=== PATIENT | female | born 1975 | race American Indian/Alaskan Native ===

== ENCOUNTER 2017-07-30 12:22 | Emergency (ER) | payer OTHER ==
[2017-07-30 13:09] VITALS: BP 125/70
== END 2017-07-30 15:10 | disposition left against medical advice (07) ==
LOC: ED 12:22
DX: M25.472 Effusion, left ankle (principal); R42 Dizziness and giddiness; F17.200 Nicotine dependence, unspecified, uncomplicated; Z53.21 Procedure and treatment not carried out due to patient leaving prior to being seen by health care provider
CPT/HCPCS: 82962

== ENCOUNTER 2018-08-31 12:47 | Emergency (ER) | payer OTHER ==
[2018-08-31 12:57] VITALS: BP 130/73
--- NOTE | 2018-08-31 13:31 | Emergency Department Report ---
ED Recheck HPI - General Chief Complaint: Recheck/Abnormal Lab/Rx Stated Complaint: OUT MEDS/ANKLE SWELLEN Time Seen by Provider: 08/31/18 13:26 Source: patient Mode of arrival: Ambulatory Limitations: No Limitations - History of Present Illness Initial Comments: Pt is a 43 yo female who presents to the ED with c/o needing a medication refill. pt denies any symptoms at all. she has pill bottles with prescriptions for metformin 500 mg BID, simvastatin 20 mg, and lisinopril 5 mg. pt states she has not taken her medications in 1 month. she does not report any CP, abd, N/V/D, urinary sx, SOB, dizziness, or any other sx. - Related Data Previous Rx's Medication Instructions Recorded Last Taken Type Lisinopril [Zestril TAB] 5 mg PO QDAY #21 tablet 08/31/18 Unknown Rx Simvastatin 20 mg PO DAILY #21 tablet 08/31/18 Unknown Rx metFORMIN [Glucophage] 500 mg PO BID #42 tablet 08/31/18 Unknown Rx Allergies Allergy/AdvReac Type Severity Reaction Status Date / Time No Known Allergies Allergy Unverified 07/30/17 13:04 ED Review of Systems ROS: Stated complaint: OUT MEDS/ANKLE SWELLEN Other details as noted in HPI Comment: All other systems reviewed and negative ED Past Medical Hx - Past Medical History Previous Medical History?: Yes Hx Hypertension: Yes Hx Diabetes: Yes Additional medical history: high cholesterol - Surgical History Past Surgical History?: No - Social History Smoking Status: Unknown if ever smoked Substance Use Type: None - Medications Home Medications: Home Medications Medication Instructions Recorded Confirmed Last Taken Type Lisinopril [Zestril TAB] 5 mg PO QDAY #21 tablet 08/31/18 Unknown Rx Simvastatin 20 mg PO DAILY #21 tablet 08/31/18 Unknown Rx metFORMIN [Glucophage] 500 mg PO BID #42 tablet 08/31/18 Unknown Rx ED Physical Exam - General Limitations: No Limitations General appearance: alert, in no apparent distress - Head Head exam: Present: atraumatic, normocephalic - Eye Eye exam: Present: normal appearance, PERRL - ENT ENT exam: Present: mucous membranes moist - Respiratory Respiratory exam: Present: normal lung sounds bilaterally. Absent: respiratory distress, wheezes, rales, rhonchi, stridor, accessory muscle use, decreased breath sounds, prolonged expiratory - Cardiovascular Cardiovascular Exam: Present: regular rate, normal rhythm, normal heart sounds. Absent: systolic murmur, diastolic murmur, rubs, gallop - Neurological Exam Neurological exam: Present: alert, oriented X3 - Psychiatric Psychiatric exam: Present: normal affect, normal mood - Skin Skin exam: Present: warm, dry, intact ED Course Vital Signs 08/31/18 12:56 Temperature 98.3 F Pulse Rate 92 H Respiratory 18 Rate Blood Pressure 130/73 O2 Sat by Pulse 100 Oximetry ED Recheck MDM - Medical Decision Making Pt is a 43 yo female who presents to the ED with c/o needing a medication refill. pt denies any symptoms at all. she has pill bottles with prescriptions for metformin 500 mg BID, simvastatin 20 mg, and lisinopril 5 mg. pt states she has not taken her medications in 1 month. she does not report any CP, abd, N/V/D, urinary sx, SOB, dizziness, or any other sx. VSS. pt given a refill of three weeks worth of her medications. advised to please take medication as prescribed. please keep a blood pressure log. please follow up with a primary care doctor in the next 2-3 days. given list of several clinics and resources in the surrounding area. discussed with pt in detail that future refills will need to be through a primary care doctor. return to the emergency room for any new or worsening symptoms. Critical care attestation.: If time is entered above; I have spent that time in minutes in the direct care of this critically ill patient, excluding procedure time. ED Disposition Clinical Impression: Medication refill Disposition: [id number] TO HOME OR SELFCARE Is pt being admited?: No Does the pt Need Aspirin: No Condition: Stable Additional Instructions: please take medication as prescribed. please keep a blood pressure log. please follow up with a primary care doctor in the next 2-3 days. given list of several clinics. future refills will need to be through a primary care doctor. return to the emergency room for any new or worsening symptoms. Prescriptions: metFORMIN [Glucophage] 500 mg PO BID #42 tablet Simvastatin 20 mg PO DAILY #21 tablet Lisinopril [Zestril TAB] 5 mg PO QDAY #21 tablet Referrals: [facility] [Outside] - 2-3 Days [facility] [Provider Group] - 2-3 Days [facility] [Outside] - 2-3 Days Time of Disposition: 13:31 Print Language: VATICAN CITIZEN
== END 2018-08-31 13:30 | disposition home or self-care (01) ==
LOC: ED 12:47
DX: I10 Essential (primary) hypertension (principal); E11.9 Type 2 diabetes mellitus without complications; E78.00 Pure hypercholesterolemia, unspecified; Z76.0 Encounter for issue of repeat prescription
CPT/HCPCS: 99282

== ENCOUNTER 2019-01-26 16:04 | Emergency (ER) | payer OTHER ==
[2019-01-26 17:11] VITALS: BP 127/66
--- NOTE | 2019-01-26 17:20 | Emergency Department Report ---
Chief Complaint: Medical Clearance Stated Complaint: REFILL ON DIABETIC MEDS Time Seen by Provider: 01/26/19 17:21 - HPI History of Present Illness: 43 y o female with a PMH of Diabetes, HTN and High Cholesterol presents wanting a refill on her medication stating she has been out of them for a couple of weeks, She states she is unable to follow up with her pcp yet She denies f/c/n/v/d/ [place]/blurry vision - ROS Review of Systems: As noted in HPI - Exam Vital Signs: Vital Signs 01/26/19 17:06 Temperature 98.8 F Pulse Rate 97 H Respiratory 20 Rate Blood Pressure 127/66 O2 Sat by Pulse 98 Oximetry Physical Exam: GEN: AAo x 3, no acute distress MSE screening note: Focused history and physical exam performed. Due to findings the following was ordered: ED Disposition for MSE Clinical Impression: Diabetes Disposition: Z- MED SCREENING EXAM-LEFT Is pt being admited?: No Does the pt Need Aspirin: No Condition: Stable Instructions: Diabetes Mellitus Type 2 in Adults (ED) Additional Instructions: follow up with pcp, take medication as presecribed Prescriptions: metFORMIN [Glucophage] 500 mg PO BID #60 tablet Simvastatin 20 mg PO DAILY #30 tablet Lisinopril [Zestril TAB] 5 mg PO QDAY #30 tablet Referrals: [facility] [Outside] - 3-5 Days [facility] [place] [Outside] - 3-5 Days Forms: Work/School Release Form(ED) Time of Disposition: :19
== END 2019-01-26 17:41 | disposition left against medical advice (07) ==
LOC: ED 16:04
DX: E11.9 Type 2 diabetes mellitus without complications (principal); Z76.0 Encounter for issue of repeat prescription
CPT/HCPCS: 99281

== ENCOUNTER 2019-11-08 23:27 | Emergency (ER) | payer OTHER ==
[2019-11-09 00:15] VITALS: BP 119/65
--- NOTE | 2019-11-09 04:36 | Emergency Department Report ---
HPI - General Chief Complaint: Recheck/Abnormal Lab/Rx Time Seen by Provider: 11/09/19 04:30 - HPI HPI: 44-year-old female presents to the emergency department with a complaint of a burning sensation to the left eye, eye redness, and some crusting and discharge since waking up yesterday morning. She says that she washed her eye out with some water and the symptoms have improved somewhat but have not yet resolved. She denies any fever, vision change, eye pain. She has a history of diabetes, hypertension and hyperlipidemia. ED Past Medical Hx - Past Medical History Hx Hypertension: Yes Hx Diabetes: Yes Additional medical history: high cholesterol - Social History Smoking Status: Never Smoker Substance Use Type: None - Medications Home Medications: Home Medications Medication Instructions Recorded Confirmed Last Taken Type Simvastatin 20 mg PO DAILY #30 tablet 01/26/19 Unknown Rx lisinopriL [Zestril TAB] 5 mg PO QDAY #30 tablet 01/26/19 Unknown Rx metFORMIN [Glucophage] 500 mg PO BID #60 tablet 01/26/19 Unknown Rx Tobramycin/Dexameth 0.3-0.1% 1 drops OS Q6H #1 bottle 11/09/19 Unknown Rx [Tobradex] ED Review of Systems ROS: Stated complaint: POSS PINK EYE Other details as noted in HPI Constitutional: denies: chills, fever Eyes: eye discharge, other (burning sensation) ENT: denies: ear pain, throat pain Respiratory: denies: cough, shortness of breath Neurological: denies: headache, weakness Physical Exam - Physical Exam Vital Signs: Vital Signs 11/09/19 00:14 Temperature 98.6 F Pulse Rate 93 H Respiratory 18 Rate Blood Pressure 119/65 O2 Sat by Pulse 100 Oximetry Physical Exam: GENERAL: The patient is well-developed well-nourished. HENT: Normocephalic. Atraumatic. Patient has moist mucous membranes. EYES: Extraocular motions are intact. Pupils equal reactive to light bilaterally. The left conjunctiva is diffusely injected. A small amount of discharge is seen to the medial canthus of the left eye. NECK: Supple. Trachea is midline. SKIN: Skin is warm and dry. NEURO: The patient is awake, alert, and oriented. The patient is cooperative. Normal speech. MUSCULOSKELETAL: There is no tenderness or deformity. ED Course Vital Signs 11/09/19 00:14 Temperature 98.6 F Pulse Rate 93 H Respiratory 18 Rate Blood Pressure 119/65 O2 Sat by Pulse 100 Oximetry ED Medical Decision Making - Medical Decision Making The patient appears to have conjunctivitis and will be placed antibiotic eyedrops. She has a burning sensation to the eye but no severe pain and no change in vision. Vital signs have been reassuring. She has been given outpatient referral for ophthalmology for both the conjunctivitis and for maintenance diabetic eye care. She will return to the ER with any worsening of her symptoms or with any acute distress. Critical Care Time: No Critical care attestation.: If time is entered above; I have spent that time in minutes in the direct care of this critically ill patient, excluding procedure time. ED Disposition Clinical Impression: Conjunctivitis Qualifiers: Conjunctivitis type: unspecified Laterality: left Qualified Code(s): H10.9 - Unspecified conjunctivitis Disposition: TO HOME OR SELFCARE Is pt being admited?: No Condition: Stable Instructions: Conjunctivitis (ED) Additional Instructions: Use the antibiotic eyedrops as prescribed. Follow-up with your primary care physician in the next few days. I have also given you a referral for a local transportation specialist, Dr. Paulino Winslow, to follow-up regarding your pinkeye and for diabetic eye care. Return to the emergency department immediately with any worsening of your symptoms or with any acute distress. Prescriptions: Tobramycin/Dexameth 0.3-0.1% [Tobradex] 1 drops OS Q6H #1 bottle Referrals: PAULINO WINSLOW MD [Staff Physician] - 2-3 Days [facility], [Primary Care Provider] - 2-3 Days Forms: Work/School Release Form(ED) Time of Disposition: 04:36
== END 2019-11-09 04:50 | disposition home or self-care (01) ==
LOC: ED 23:27
DX: H10.9 Unspecified conjunctivitis (principal); I10 Essential (primary) hypertension; E11.9 Type 2 diabetes mellitus without complications; E78.00 Pure hypercholesterolemia, unspecified; Z79.899 Other long term (current) drug therapy
CPT/HCPCS: 99281

== ENCOUNTER 2020-03-23 16:39 | Emergency (ER) | payer OTHER ==
[2020-03-23 16:51] VITALS: BP 116/66
--- NOTE | 2020-03-23 16:54 | Event Note ---
ED Screening Note Date of service: 03/23/20 Time: 16:53 ED Screening Note: This is a 44-year-old female with a history of diabetes on insulin and Metformin who presents the ED complaining of dizziness and weakness with vomiting and lower abdominal pain for the past week that is worsening. Patient states she has had a loss or lack of appetite in the past couple of days. Nontender abdomen. This initial assessment/diagnostic orders/clinical plan/treatment(s) is/are subject to change based on patients health status, clinical progression and re- assessment by fellow clinical providers in the ED. Further treatment and workup at subsequent clinical providers discretion. Patient/guardian urged not to elope from the ED as their condition may be serious if not clinically assessed and managed. Initial orders include: Labs, urine, To be further evaluated
[2020-03-23 17:29] LABS: Basophils % (Auto) 0.3 % (0.0-1.8); Eosinophils % (Auto) 0.6 % (0.0-4.3); Hematocrit 31.8 % (30.3-42.9); Hemoglobin 9.9 gm/dl (10.1-14.3); Lymphocytes # (Auto) 1.8 K/mm3 (1.2-5.4); Lymphocytes % (Auto) 39.6 % (13.4-35.0); Mean Corpuscular HGB Conc 31 % (30-34); Mean Corpuscular Volume 70 fl (79-97); Monocytes # (Auto) 0.4 K/mm3 (0.0-0.8); Platelet Count 284 K/mm3 (140-440); Red Blood Count 4.54 M/mm3 (3.65-5.03); Red Cell Distribution Width 20.1 % (13.2-15.2)
[2020-03-23 17:40] LABS: Alanine Aminotransferase 9 units/L (7-56); Blood Urea Nitrogen 6 mg/dL (7-17); Calcium 8.8 mg/dL (8.4-10.2); Hemolysis Index 16
[2020-03-23 17:42] LABS: BUN/Creatinine Ratio 10
[2020-03-23 17:50] LABS: HCG Qualitative,Urine Negative (Negative)
[2020-03-23 17:52] LABS: Bilirubin,Urine SM (Negative); Blood,Urine NEG (Negative); Color,Urine Amber (Yellow); Mucus,Urine 3+ /HPF
[2020-03-23 17:59] LABS: Protein,Urine >500 mg/dL (Negative)
[2020-03-23 18:05] LABS: Ictotest,Urine Negative (Negative)
[2020-03-23] MEDS ORDERED: SODIUM CHLORIDE 0.9% 1000 ML 1,000 ML IV ONE ×2 (21:08)
--- NOTE | 2020-03-23 22:32 | XRay Report ---
CHEST 1 VIEW 03/23/2020 9:05 PM INDICATION / CLINICAL INFORMATION: cough recent covid exposure. COMPARISON: None available. FINDINGS: SUPPORT DEVICES: None. HEART / MEDIASTINUM: No significant abnormality. LUNGS / PLEURA: No significant pulmonary or pleural abnormality. No pneumothorax. No confluent infilt rates or pleural effusions. ADDITIONAL FINDINGS: No significant additional findings. IMPRESSION: 1. No acute findings. Signer Name: Peter Boudreaux MD Signed: 03/23/2020 10:27 PM Workstation Name: [id number]
--- NOTE | 2020-03-23 22:48 | Emergency Department Report ---
ED General Adult HPI - General Chief complaint: Abdominal Pain Stated complaint: ABDOMINAL PAIN/DIZZINESS Time Seen by Provider: 03/23/20 20:59 Source: patient Mode of arrival: Ambulatory Limitations: No Limitations - History of Present Illness Initial comments: Patient is a 44-year-old F [place] female with past medical history of diabetes hypertension who is presenting with 2 weeks of multiple symptoms. Patient states she is having mild cough which is nonproductive. States during the 2 weeks especially in the beginning she was very nauseous and vomited twice with the nausea is now improving. She had decreased appetite decreased sense of tast e and smell. She has been eating and drinking less now feels weak and some dizziness. She is continued to have some mild diarrhea and some lower abdominal discomfort as well. Pain estimated at 5 out of 10 in severity. Patient states the cough and diarrhea are improving day by day but she is continued to have some dizziness. Patient has had exposure to COVID-19. She denies any short shortness of breath with exertion - Related Data Previous Rx's Medication Instructions Recorded Last Taken Type Simvastatin 20 mg PO DAILY #30 tablet 01/26/19 Unknown Rx lisinopriL [Zestril TAB] 5 mg PO QDAY #30 tablet 01/26/19 Unknown Rx metFORMIN [Glucophage] 500 mg PO BID #60 tablet 01/26/19 Unknown Rx Tobramycin/Dexameth 0.3-0.1% 1 drops OS Q6H #1 bottle 11/09/19 Unknown Rx [Tobradex] Albuterol Mdi (or & Nicu Only) 2 puff IH QID PRN #1 inhalation 03/23/20 Unknown Rx [ProAir HFA Inhaler] Dicyclomine [Bentyl] 20 mg PO QID #10 tablet 03/23/20 Unknown Rx Diphenoxylate/Atropine [Lomotil] 1 tab PO Q4H PRN #10 tablet 03/23/20 Unknown Rx Ketorolac [Toradol] 10 mg PO Q6H PRN #12 tablet 03/23/20 Unknown Rx Allergies Allergy/AdvReac Type Severity Reaction Status Date / Time No Known Allergies Allergy Verified 03/23/20 16:49 ED Review of Systems ROS: Stated complaint: ABDOMINAL PAIN/DIZZINESS Other details as noted in HPI Comment: All other systems reviewed and negative ED Past Medical Hx - Past Medical History Hx Hypertension: Yes Hx Diabetes: Yes Additional medical history: high cholesterol - Surgical History Past Surgical History?: No - Social History Smoking Status: Never Smoker Substance Use Type: None - Medications Home Medications: Home Medications Medication Instructions Recorded Confirmed Last Taken Type Simvastatin 20 mg PO DAILY #30 tablet 01/26/19 Unknown Rx lisinopriL [Zestril TAB] 5 mg PO QDAY #30 tablet 01/26/19 Unknown Rx metFORMIN [Glucophage] 500 mg PO BID #60 tablet 01/26/19 Unknown Rx Tobramycin/Dexameth 0.3-0.1% 1 drops OS Q6H #1 bottle 11/09/19 Unknown Rx [Tobradex] Albuterol Mdi (or & Nicu Only) 2 puff IH QID PRN #1 inhalation 03/23/20 Unknown Rx [ProAir HFA Inhaler] Dicyclomine [Bentyl] 20 mg PO QID #10 tablet 03/23/20 Unknown Rx Diphenoxylate/Atropine [Lomotil] 1 tab PO Q4H PRN #10 tablet 03/23/20 Unknown Rx Ketorolac [Toradol] 10 mg PO Q6H PRN #12 tablet 03/23/20 Unknown Rx ED Physical Exam - General Limitations: No Limitations General appearance: alert, in no apparent distress - Head Head exam: Present: atraumatic, normocephalic - Eye Eye exam: Present: normal appearance, PERRL, EOMI - ENT ENT exam: Present: normal orophraynx, mucous membranes moist - Neck Neck exam: Present: normal inspection - Respiratory Respiratory exam: Present: normal lung sounds bilaterally. Absent: respiratory distress, wheezes, rales, rhonchi - Cardiovascular Cardiovascular Exam: Present: regular rate, normal rhythm, normal heart sounds. Absent: systolic murmur, diastolic murmur, rubs, gallop - GI/Abdominal GI/Abdominal exam: Present: soft, normal bowel sounds. Absent: distended, tenderness, guarding, rebound - Extremities Exam Extremities exam: Present: normal inspection - Back Exam Back exam: Present: normal inspection - Neurological Exam Neurological exam: Present: alert, oriented X3 - Psychiatric Psychiatric exam: Present: normal affect, normal mood - Skin Skin exam: Present: warm, dry, intact, normal color. Absent: rash ED Course Vital Signs 03/23/20 16:51 Temperature 97.9 F Pulse Rate 90 Respiratory 20 Rate Blood Pressure 116/66 [Right] O2 Sat by Pulse 98 Oximetry ED Medical Decision Making - Lab Data Result diagrams: 03/23/20 17:05 03/23/20 17:05 Lab Results 03/23/20 03/23/20 03/23/20 Range/Units 17:05 17:05 17:05 WBC 4.6 (4.5-11.0) K/mm3 RBC 4.54 (3.65-5.03) M/mm3 Hgb 9.9 L (10.1-14.3) gm/dl Hct 31.8 (30.3-42.9) % MCV 70 L (79-97) fl MCH 22 L (28-32) pg MCHC 31 (30-34) % RDW 20.1 H (13.2-15.2) % Plt Count 284 (140-440) K/mm3 Lymph % (Auto) 39.6 H (13.4-35.0) % [place] % (Auto) 9.0 H (0.0-7.3) % Eos % (Auto) 0.6 (0.0-4.3) % Baso % (Auto) 0.3 (0.0-1.8) % Lymph # (Auto) 1.8 (1.2-5.4) K/mm3 [place] # (Auto) 0.4 (0.0-0.8) K/mm3 Eos # (Auto) 0.0 (0.0-0.4) K/mm3 Baso # (Auto) 0.0 (0.0-0.1) K/mm3 Seg Neutrophils % 50.5 (40.0-70.0) % Seg Neutrophils # 2.3 (1.8-7.7) K/mm3 Sodium 135 L (137-145) mmol/L Potassium 3.9 (3.6-5.0) mmol/L Chloride 99.5 (98-107) mmol/L Carbon Dioxide 22 (22-30) mmol/L Anion Gap 17 mmol/L BUN 6 L (7-17) mg/dL Creatinine 0.6 (0.6-1.2) mg/dL Estimated GFR > 60 ml/min BUN/Creatinine Ratio 10 % Glucose 235 H (65-100) mg/dL Calcium 8.8 (8.4-10.2) mg/dL Total Bilirubin 0.80 (0.1-1.2) mg/dL AST 14 (5-40) units/L ALT 9 (7-56) units/L Alkaline Phosphatase 98 (35-129) units/L Total Protein 7.5 (6.3-8.2) g/dL Albumin 4.0 (3.9-5) g/dL Albumin/Globulin Ratio 1.1 % Lipase 21 (13-60) units/L Urine Color (Yellow) Urine Turbidity (Clear) Urine pH (5.0-7.0) Ur Specific [place] (1.003-1.030) Urine Protein (Negative) mg/dL Urine Glucose (UA) (Negative) mg/dL Urine Ketones (Negative) mg/dL Urine Blood (Negative) Urine Nitrite (Negative) Ur Reducing Substances Urine Bilirubin (Negative) Urine Ictotest (Negative) Urine Urobilinogen (<2.0) mg/dL Ur Leukocyte Esterase (Negative) Urine WBC (Auto) (0.0-6.0) /HPF Urine RBC (Auto) (0.0-6.0) /HPF U Epithel Cells (Auto) (0-13.0) /HPF Urine Mucus /HPF Urine HCG, Qual (Negative) 03/23/20 Range/Units 17:26 WBC (4.5-11.0) K/mm3 RBC (3.65-5.03) M/mm3 Hgb (10.1-14.3) gm/dl Hct (30.3-42.9) % MCV (79-97) fl MCH (28-32) pg MCHC (30-34) % RDW (13.2-15.2) % Plt Count (140-440) K/mm3 Lymph % (Auto) (13.4-35.0) % [place] % (Auto) (0.0-7.3) % Eos % (Auto) (0.0-4.3) % Baso % (Auto) (0.0-1.8) % Lymph # (Auto) (1.2-5.4) K/mm3 [place] # (Auto) (0.0-0.8) K/mm3 Eos # (Auto) (0.0-0.4) K/mm3 Baso # (Auto) (0.0-0.1) K/mm3 Seg Neutrophils % (40.0-70.0) % Seg Neutrophils # (1.8-7.7) K/mm3 Sodium (137-145) mmol/L Potassium (3.6-5.0) mmol/L Chloride (98-107) mmol/L Carbon Dioxide (22-30) mmol/L Anion Gap mmol/L BUN (7-17) mg/dL Creatinine (0.6-1.2) mg/dL Estimated GFR ml/min BUN/Creatinine Ratio % Glucose (65-100) mg/dL Calcium (8.4-10.2) mg/dL Total Bilirubin (0.1-1.2) mg/dL AST (5-40) units/L ALT (7-56) units/L Alkaline Phosphatase (35-129) units/L Total Protein (6.3-8.2) g/dL Albumin (3.9-5) g/dL Albumin/Globulin Ratio % Lipase (13-60) units/L Urine Color [place] (Yellow) Urine Turbidity Cloudy (Clear) Urine pH 5.0 (5.0-7.0) Ur Specific [place] 1.028 (1.003-1.030) Urine Protein >500 (Negative) mg/dL Urine Glucose (UA) 50 (Negative) mg/dL Urine Ketones 80 (Negative) mg/dL Urine Blood Neg (Negative) Urine Nitrite Neg (Negative) Ur Reducing Substances Not Reportable Urine Bilirubin Sm (Negative) Urine Ictotest Negative (Negative) Urine Urobilinogen 4.0 (<2.0) mg/dL Ur Leukocyte Esterase Neg (Negative) Urine WBC (Auto) 5.0 (0.0-6.0) /HPF Urine RBC (Auto) 2.0 (0.0-6.0) /HPF U Epithel Cells (Auto) 17.0 H (0-13.0) /HPF Urine Mucus 3+ /HPF Urine HCG, Qual Negative (Negative) - Radiology Data Chest x-ray shows no acute process - Medical Decision Making Patient is a 44-year-old F [place] female who is presenting with some mild dizziness. She has had decreased appetite and some diarrhea. Patient likely has COVID-19 but a mild case. Her oxygen level vital signs are within normal limits and her chest x-ray is normal. Patient was hydrated with 2 L of normal saline for dehydration. Patient is feeling much improved and be discharged home. Critical care attestation.: If time is entered above; I have spent that time in minutes in the direct care of this critically ill patient, excluding procedure time. ED Disposition Clinical Impression: Suspected COVID-19 virus infection, Diarrhea, Dehydration Disposition: - TO HOME OR SELFCARE Is pt being admited?: No Does the pt Need Aspirin: No Condition: Stable Instructions: Abdominal Pain (ED), Dehydration, Adult, [id number], Diarrhea, Adult, COVID-19, COVID-19: How to Protect Yourself and Others - [facility] Referrals: MICHAEL HENDRIX [Primary Care Provider] - 3-5 Days Time of Disposition: 22:50
== END 2020-03-23 23:48 | disposition home or self-care (01) ==
LOC: ED 16:39
DX: R19.7 Diarrhea, unspecified (principal); Z20.828 Contact with and (suspected) exposure to other viral communicable diseases; E86.0 Dehydration; I10 Essential (primary) hypertension; E11.9 Type 2 diabetes mellitus without complications; Z79.84 Long term (current) use of oral hypoglycemic drugs; Z79.899 Other long term (current) drug therapy
CPT/HCPCS: 36415; 71045; 80053; 81001; 81025; 83690; 85025; 96360; 96361; 99284; J7030

== ENCOUNTER 2021-09-12 20:24 | Emergency (ER) | payer SELFPAY ==
[2021-09-12 20:52] VITALS: BP 130/77
[2021-09-13] MEDS ORDERED: HYDROcodone/ACETAMINOPHEN 5-325 MG TAB PO STA (04:30)
--- NOTE | 2021-09-13 04:43 | Emergency Department Report ---
ED Back Pain/Injury HPI - General Chief Complaint: Back Pain/Injury Stated Complaint: BACK PAIN Time Seen by Provider: 09/13/21 02:28 Source: patient Limitations: No Limitations - History of Present Illness Initial Comments: 46-year-old female asthma department complaining of continued back pain to the mid to upper back rating to the right side of tingling and burning fashion o ff-and-on sometimes shooting down her legs related to a work-related incident which occurred about 2 months ago which is currently been treated and evaluated by the Worker's Compensation provider. States that she is having continued pain as a result, emergency department seeking out the treatment she has completed the recommended therapy by the Worker's Compensation provider. Reports no fever, chills, sweats. No loss of bowel bladder no saddle paresthesia. MD Complaint: back pain, back injury - Related Data Previous Rx's Medication Instructions Recorded Last Taken Type Simvastatin 20 mg PO DAILY #30 tablet 01/26/19 Unknown Rx lisinopriL [Zestril TAB] 5 mg PO QDAY #30 tablet 01/26/19 Unknown Rx metFORMIN [Glucophage] 500 mg PO BID #60 tablet 01/26/19 Unknown Rx Tobramycin/Dexameth 0.3-0.1% 1 drops OS Q6H #1 bottle 11/09/19 Unknown Rx [Tobradex] Albuterol Mdi (or & Nicu Only) 2 puff IH QID PRN #1 inhalation 03/23/20 Unknown Rx [ProAir HFA Inhaler] Dicyclomine [Bentyl] 20 mg PO QID #10 tablet 03/23/20 Unknown Rx Diphenoxylate/Atropine [Lomotil] 1 tab PO Q4H PRN #10 tablet 03/23/20 Unknown Rx Ketorolac [Toradol] 10 mg PO Q6H PRN #12 tablet 03/23/20 Unknown Rx Acetaminophen/Codeine [Tylenol #3] 1 tab PO Q6H PRN #15 tab 09/13/21 Unknown Rx methOCARBAMOL [Robaxin] 750 mg PO Q8H PRN #21 tablet 09/13/21 Unknown Rx Allergies Allergy/AdvReac Type Severity Reaction Status Date / Time No Known Allergies Allergy Verified 03/23/20 16:49 ED Review of Systems ROS: Stated complaint: BACK PAIN Other details as noted in HPI Comment: All other systems reviewed and negative ED Past Medical Hx - Past Medical History Hx Hypertension: Yes Hx Diabetes: Yes Additional medical history: high cholesterol - Social History Smoking Status: Never Smoker Substance Use Type: None - Medications Home Medications: Home Medications Medication Instructions Recorded Confirmed Last Taken Type Simvastatin 20 mg PO DAILY #30 tablet 01/26/19 Unknown Rx lisinopriL [Zestril TAB] 5 mg PO QDAY #30 tablet 01/26/19 Unknown Rx metFORMIN [Glucophage] 500 mg PO BID #60 tablet 01/26/19 Unknown Rx Tobramycin/Dexameth 0.3-0.1% 1 drops OS Q6H #1 bottle 11/09/19 Unknown Rx [Tobradex] Albuterol Mdi (or & Nicu Only) 2 puff IH QID PRN #1 inhalation 03/23/20 Unknown Rx [ProAir HFA Inhaler] Dicyclomine [Bentyl] 20 mg PO QID #10 tablet 03/23/20 Unknown Rx Diphenoxylate/Atropine [Lomotil] 1 tab PO Q4H PRN #10 tablet 03/23/20 Unknown Rx Ketorolac [Toradol] 10 mg PO Q6H PRN #12 tablet 03/23/20 Unknown Rx Acetaminophen/Codeine [Tylenol #3] 1 tab PO Q6H PRN #15 tab 09/13/21 Unknown Rx methOCARBAMOL [Robaxin] 750 mg PO Q8H PRN #21 tablet 09/13/21 Unknown Rx ED Physical Exam - General Limitations: No Limitations General appearance: alert, in no apparent distress - Head Head exam: Present: atraumatic, normocephalic - Eye Eye exam: Present: normal appearance, PERRL, EOMI Pupils: Present: normal accommodation - ENT ENT exam: Present: mucous membranes moist - Neck Neck exam: Present: normal inspection - Respiratory Respiratory exam: Present: normal lung sounds bilaterally. Absent: respiratory distress - Cardiovascular Cardiovascular Exam: Present: regular rate, normal rhythm. Absent: systolic murmur, diastolic murmur, rubs, gallop - GI/Abdominal GI/Abdominal exam: Present: soft, normal bowel sounds - Extremities Exam Extremities exam: Present: normal inspection - Back Exam Back exam: Present: normal inspection, paraspinal tenderness. Absent: CVA tenderness (R), CVA tenderness (L) - Neurological Exam Neurological exam: Present: alert, oriented X3, CN II-XII intact, normal gait - Psychiatric Psychiatric exam: Present: normal affect, normal mood - Skin Skin exam: Present: warm, dry, intact, normal color. Absent: rash ED Course Vital Signs 09/12/21 20:25 Temperature 98.2 F Pulse Rate 91 H Respiratory 18 Rate Blood Pressure 130/77 [Left] O2 Sat by Pulse 99 Oximetry ED Medical Decision Making - Medical Decision Making Pt presents the emergency department complaining of back pain most consistent with lumbago back Pain Most Consistent with . Differential Diagnosis Includes Lumbar Go Versus Musculoskeletal Spasm, Strain Versus Sciatica. No Back Pain Red Flags on History or Physical. Presentation Not Consistent with Malignancy, Fracture, Cauda Equina, Abdominal Aortic Aneurysm, Viscus Perforation, Pulmonary Embolism, Renal Colic, Pyelonephritis. Patient reports no B symptoms, trauma trauma, incontinence, saddle anesthesia, distal weakness, urinary symptoms and is a febrile. Critical care attestation.: If time is entered above; I have spent that time in minutes in the direct care of this critically ill patient, excluding procedure time. ED Disposition Clinical Impression: Back pain Disposition: 01 HOME / SELF CARE / HOMELESS Is pt being admited?: No Does the pt Need Aspirin: No Condition: Stable Instructions: Back Injury Prevention, [id number], What You Need to Know About Chronic Back Pain, Chronic Back Pain, [id number] Additional Instructions: Evaluate imaging performed today for your subacute back pain no new injuries no new symptomology. Please follow-up with your Worker's Compensation doctor as this is a workers comp case and follow the recommendations and guidelines as no urgent or emergent intervention is needed at this present time provided with medication to help mitigate her pain. Follow-up with your doctors in the next couple days Prescriptions: methOCARBAMOL [Robaxin] 750 mg PO Q8H PRN #21 tablet PRN Reason: Spasms Acetaminophen/Codeine [Tylenol #3] 1 tab PO Q6H PRN #15 tab PRN Reason: Pain Referrals: [facility] [Provider Group] - 3-5 Days [facility] [Provider Group] - 3-5 Days
== END 2021-09-13 07:55 | disposition home or self-care (01) ==
LOC: ED 20:24
DX: M54.89 Other dorsalgia (principal); I10 Essential (primary) hypertension; E11.9 Type 2 diabetes mellitus without complications; E78.00 Pure hypercholesterolemia, unspecified
CPT/HCPCS: 99282